=== PATIENT | female | born 1955 | race Caucasian/White ===

== ENCOUNTER → 2018-03-29 | Day surgery (SDC) | payer OTHER ==
[~2018-03-29] VITALS: Ht 162.6 cm; Wt 61.6 kg
[~2018-03-29] MED LIST: APREPITANT 40 MG CAP PO ONE; CHLORHEXIDINE GLUCONATE 2 % 1 PACK (2 CLOTHS) TOPICAL PRN; DEXAMETHASONE SOD PHOS 4 MG/ML VIAL IV ONE; DO NOT ADM ANY ANTICOAGULANT DRUGS PRN; FAMOTIDINE 20 MG/2 ML VIAL IV PUSH ONE; LACTATED RINGER'S 1000 ML IV PRN; LEVO75TA3 PO; LIDOCAINE HCL 1% PF 5 ML SYRINGE OTHER ONE; METOPROLOL TARTRATE 25 MG TAB PO PRN; MIDAZOLAM HCL 2 MG/2 ML VIAL ONE; ONDANSETRON HCL 4 MG/2 ML VIAL IV ONE; PHENYLEPH/NS 1000 MCG/10 ML SYR IV ONE; POVIDONE IODINE 5% (ANTISEPSIS KIT) 4 APPLICATIONS EACH NARE PRN; PROPOFOL 200 MG/20 ML AMP IV ONE; SODIUM CHLORID 0.9% 500 ML IV PRN; ePHEDrine/NS 25 MG/5 ML SYRINGE IV ONE
--- NOTE | 2018-03-29 07:55 | RADRPT ---
EXAM DATE: 03/29/2018 7:49 AM EDT AGE/SEX: 62 years / Female INDICATIONS: Pre-op ESWL. Left kidney stone. CLINICAL DATA: This is the patient's initial encounter. Patient reports that signs and symptoms have been present for 1 day and indicates a pain score of 0/10. MEDICAL/SURGICAL HISTORY: None. None. COMPARISON: PO[facility], CT ABDOMEN AND PELVIS W/O CONTRAST, 03/10/2018. . FINDINGS: The abdominal bowel gas pattern is normal. Recently noted 6 mm calcified calculus in the left UVJ is not well demonstrated on radiographs and may be obscured by colonic gas. No definite abnormal calcif ications in the course of the ureters and kidneys. Moderate amount of stool throughout the colon. 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 CONCLUSION: 1. 6 mm calcified distal left UVJ calculus not well demonstrated on radiographs. Electronically signed by: Marcell Duarte MD 03/29/2018 7:53 AM EDT
[2018-03-29 08:39] LABS: AUTOMATED NEUTROPHIL # 3.1 TH/MM3 (1.8-7.7); EOSINOPHIL # 0.1 TH/MM3 (0-0.4); HEMATOCRIT 43.4 % (35.0-46.0); HEMOGLOBIN 14.4 GM/DL (11.6-15.3); LYMPHOCYTE # 1.2 TH/MM3 (1.0-4.8); MEAN CELL VOLUME 88.4 FL (80.0-100.0); MEAN CORPUSCULAR HEMOGLOBIN 29.4 PG (27.0-34.0); MEAN CORPUSCULAR HGB CONC 33.2 % (32.0-36.0); MEAN PLATELET VOLUME 8.2 FL (7.0-11.0); MONO % 6.8 % (0.0-8.0); MONOCYTE # 0.3 TH/MM3 (0-0.9); NEUT % 64.2 % (16.0-70.0); PLATELET COUNT 178 TH/MM3 (150-450); RED BLOOD COUNT 4.91 MIL/MM3 (4.00-5.30); RED CELL DISTRIBUTION WIDTH 13.3 % (11.6-17.2); WHITE BLOOD COUNT 4.8 TH/MM3 (4.0-11.0)
--- NOTE | 2018-03-29 10:42 | PD.OP ---
Operative Report Date of Surgery: March 29, 2018 Preoperative Diagnosis: (1) Ureteral calculus, left Postoperative Diagnosis: (1) Ureteral calculus, left Procedure: Intraoperative fluoroscopy Surgeon: Rangel Platt Bottom Saw Operator(s): None Operation and Findings: Indication for procedure: Case of a pleasant 62-year-old female with a history of a 6 mm left ureterovesical junction calculus who presents today to undergo extracorporeal shockwave lithotripsy. Preoperative KUB study was somewhat limited due to overlying bowel gas however no definitive stone was seen. Operative procedure in detail: Patient was brought to the operating room suite and placed supine on the lithotripsy table. She was then placed under general anesthesia. Attempts were then made to localize the patient's left distal ureteral stone with fluoroscopy and no definitive stone could be seen. It is likely that the stone had spontaneously passed since her CT scan was performed. No further procedures were performed and the patient was woken up and transferred back to the PACU. A postoperative renal ultrasound study will be ordered to assess for any hydronephrosis involving the left kidney. Rangel Platt MD March 29, 2018 10:42
[2018-03-29 12:30] VITALS: BP 123/66; PULSE 82; RESP 20; TEMP 97.6; O2SAT 100
--- NOTE | 2018-03-29 14:00 | EKG ---
Date Performed: 03/29/2018 Time Performed: 07:39:17 PTAGE: 62 years EKG: Sinus rhythm INDETERMINATE AXIS ABNORMAL ECG No significant change from prior electrocardiogram. PREVIOUS TRACING : 11/23/2010 10.27 DOCTOR: Nick Rogers Interpretating Date/Time 03/29/2018 13:58:35
== END | disposition home or self-care (01) ==
LOC: HSDC 07:02
PROVIDERS: ATTEND Urology
DX: N20.1 Calculus of ureter (principal); D25.9 Leiomyoma of uterus, unspecified; Z01.810 Encounter for preprocedural cardiovascular examination; Z01.818 Encounter for other preprocedural examination; N93.8 Other specified abnormal uterine and vaginal bleeding
CPT/HCPCS: 74018; 85025; 93005; G0463; J1100; J2250; J2370; J2405; J3010; J7120; J8501; 99211